=== PATIENT | male | born 1955 | race Caucasian/White ===

== ENCOUNTER 2020-12-21 15:34 | Emergency (ER) | payer OTHER, SELFPAY ==
[~2020-12-21] VITALS: Ht 165.1 cm; Wt 54.4 kg
[2020-12-21 15:39] VITALS: BP 112/79
--- NOTE | 2020-12-21 15:39 | NUR ---
PT W/C ASSISTED TO ER BED 3.
--- NOTE | 2020-12-21 15:54 | NUR ---
DR SCHULTE AT BEDSIDE EVALUATING PT
--- NOTE | 2020-12-21 15:58 | NUR ---
PATIENT ELOPED FROM FACILITY. DISCHARGE INSTRUCTIONS NOT GIVEN TO PATIENT. DR. SCHULTE NOTIFIED.
== END 2020-12-21 15:58 | disposition left against medical advice (07) ==
LOC: MED 15:34
DX: R06.02 Shortness of breath (principal); R19.7 Diarrhea, unspecified; F17.290 Nicotine dependence, other tobacco product, uncomplicated; F12.90 Cannabis use, unspecified, uncomplicated
CPT/HCPCS: 99281